=== PATIENT | male | born 1955 | race Caucasian/White ===

== ENCOUNTER → 2021-08-23 | Day surgery (SDC) | payer MEDICARE, OTHER ==
[~2021-08-23] VITALS: Ht 182.9 cm; Wt 129.3 kg
[~2021-08-23] MED LIST: ADVAIR 100-501 EACH INH; BACLOFEN 20MG T20 MG PO; ELAVIL25 MG PO; HCTZ25 MG PO; HYDROCODON-ACE1 EAC2 PO; HYDROCODON-ACE1 EAC6 PO; LYRICA 50MG CAP50 MG PO; LYRICA100 MG PO; MELOXICAM15 MG PO; METFORMIN HCL500 M3 PO; NORCO 7.5-3251 EACH PO; PREGABALIN100 MG PO; VENTOLIN (2.5 MG/3 M INH; VENTOLIN HFA IN18 GM INH
== END | disposition home or self-care (01) ==
LOC: FAS 11:03
DX: G62.9 Polyneuropathy, unspecified (principal); G89.4 Chronic pain syndrome
CPT/HCPCS: J0690; J1885; J2001; J2704; J3010; J7120

== ENCOUNTER 2021-08-28 09:45 | Emergency (ER) | payer MEDICARE, OTHER ==
[2021-08-28 11:07] LABS: BASOPHIL 0.6 % (0-2); EOSINOPHIL 2.7 % (0-7); HCT 44.5 % (42.0-52.0); HGB 14.7 g/dl (13.2-18.0); LYMPHOCYTE 29.9 % (15-48); MCH 32.2 pg (25.0-31.0); MCV 97.6 fL (78.0-100.0); MONOCYTE 9.3 % (0-12); NEUTROPHIL 57.2 % (41-80); NRBC 0; PLT 146 K/uL (150-400); RBC 4.56 M/uL (4.70-6.00); RDW 13.3 % (11.5-14.0); WBC 6.6 K/uL (4.0-10.5)
[2021-08-28 11:30] LABS: POTASSIUM 4.4 mmol/L (3.5-5.1)
[2021-08-30] MEDS ORDERED: AUGMENTIN 500-1 EACH PO (12:12)
[2021-08-30] MEDS ORDERED: CLEOCIN300 MG PO (12:12)
[2021-08-30] MEDS ORDERED: HYDROCODON-ACE1 EAC2 PO (13:02)
[2021-08-30] MEDS ORDERED: PREGABALIN100 MG PO (13:02)
== END 2021-08-28 14:12 | disposition other institution (70) ==
LOC: FER 09:45
PROVIDERS: Emergency Medicine
DX: L03.213 Periorbital cellulitis (principal); E11.40 Type 2 diabetes mellitus with diabetic neuropathy, unspecified; Z79.84 Long term (current) use of oral hypoglycemic drugs
CPT/HCPCS: 36415; 70486; 80048; 85025; J0692

== ENCOUNTER 2021-09-04 14:31 | Emergency (ER) | payer MEDICARE, OTHER | END 2021-09-04 15:35 | disposition home or self-care (01) | LOC: FER 14:31 | DX: S01.81XA Laceration without foreign body of other part of head, initial encounter (principal); Z23 Encounter for immunization; W01.198A Fall on same level from slipping, tripping and stumbling with subsequent striking against other object, initial encounter; Y92.410 Unspecified street and highway as the place of occurrence of the external cause ==